=== PATIENT | male | born 1945 | race Caucasian/White ===

== ENCOUNTER → 2018-08-11 10:10 | Outpatient (CLI) | payer MEDICARE, SELFPAY ==
--- NOTE | 2018-08-11 10:50 | DI.CT.S_ITS ---
PROCEDURE: CT ABDOMEN PELVIS W CON INDICATIONS: ABD AORTIC ANEURYSM, WITHOUT RUPTURE TECHNIQUE: After the administration of oral and intravenous contrast, 5 mm thick sections acquired from the diaphragms to the symphysis. 5 mm thick coronal and sagittal reformats were performed. For radiation dose reduction, the following was used: automated exposure control, adjustment of mA and/or kV according to patient size. COMPARISON: [facility], CT, KIDNEY/ URETER/BLADDER, 05/11/2014, 13:42. FINDINGS: Image quality: Excellent. ABDOMEN: Lung bases: Lung bases are clear. Heart size is normal. Solid organs: Liver is normal in size and enhancement. Gallbladder appears normal. Biliary system is non-dilated. Pancreas enhances normally. Spleen is normal in size and enhancement. No adrenal nodules. Kidneys are normal in size and enhancement, without hydronephrosis. Note is made of clustered calcifications within the lower third collecting system of the right kidney and also 5 mm calcification at the collecting system of the junction of the upper and middle thirds of the right kidney. Peritoneum and bowel: Stomach, small bowel, and colon loops are normal in caliber and wall thickness. No free fluid or air. Nodes and vessels: No retroperitoneal or mesenteric adenopathy. Aorta and inferior vena cava are normal in caliber. Miscellaneous: No ventral hernias. PELVIS: Genitourinary: Bladder wall thickness is normal. Miscellaneous: No inguinal hernias or adenopathy. What appears to be a normal appendix is found. Bones: No suspicious bony lesions. No vertebral body compression fractures. IMPRESSION: Nonobstructive calculi are present within the collecting system of the right kidney superiorly and inferiorly but none appear obstructive. The largest is 5 mm in diameter and present at the junction of the upper and middle thirds of the right kidney. No aneurysm found, no evidence of aortic dissection identified. Dictated by: Mati Segundo M.D. on 08/11/2018 at 13:56 Approved by: Mati Segundo M.D. on 08/11/2018 at 13:59
== END ==
PROVIDERS: Visit Provider Internal Medicine
DX: N20.0 Calculus of kidney (principal)
CPT/HCPCS: 74177; Q9967

== ENCOUNTER → 2021-02-06 08:52 | Outpatient (CLI) | payer MEDICARE, SELFPAY ==
[2021-02-06 10:16] LABS: Aspartate Aminotransferase 25 IU/L (17-59); BUN Creatinine Ratio 15.2 (6-22); Blood Urea Nitrogen 12 mg/dL (9-20); Calcium 9.5 mg/dL (8.4-10.2); Carbon Dioxide 27 mmol/L (22-32); Chloride 105 mmol/L (98-107); Cholesterol 158 mg/dL (140-199); Estimated Glomerular Filt Rate > 60.0 mL/min (>60); Glucose 114 mg/dL (80-110); HDL Cholesterol 49 mg/dL (40-60); HEMOLYSIS < 15 (0-50); LDL Cholesterol Calculated 60 mg/dL (<100); Potassium 4.4 mmol/L (3.4-5.1); Sodium 138 mmol/L (137-145); Triglycerides 244 mg/dL (35-150)
[2021-02-06 10:48] LABS: Prostate Specific Antigen 1.17 ng/mL (0.10-4.00)
[2021-02-06 11:07] LABS: Vitamin B12 526 pg/mL (239-931)
== END ==
PROVIDERS: Referring Provider Internal Medicine; Visit Provider Internal Medicine
DX: I10 Essential (primary) hypertension (principal); E78.2 Mixed hyperlipidemia; R73.01 Impaired fasting glucose; N40.0 Benign prostatic hyperplasia without lower urinary tract symptoms; E53.8 Deficiency of other specified B group vitamins
CPT/HCPCS: 36415; 80048; 80061; 82607; 83036; 84153; 84450

== ENCOUNTER 2021-09-05 10:30 | Outpatient (RCR) | payer MEDICARE, SELFPAY ==
--- NOTE | 2021-08-24 09:39 | PT-OP ANOTE ---
Addendum entered and electronically signed by Dania Pritchett PT 08/24/21 15:29: Send to [facility] Original Note: PT calls Dr. Szymanski's office and leaves message with MA about pt's spontaneous nystagmus at rest that is the same with positional changes and is vertical and downbeat in nature and is more concerning clinically for central vascular of the cervical spine or head.
--- NOTE | 2021-08-24 15:28 | PT.OIE ---
Addendum entered and electronically signed by Dania Pritchett PT 08/24/21 15:28: Send to Stephon Original Note: Current Diagnoses Benign paroxysmal vertigo, unspecified ear (08/24/21) Visit Care Team Role Provider Type Gabriele Szymanski MD Attending Provider Physician Primary Care Provider Referring Provider Specialty: Internal Medicine Address: [address] [place] [address], [facility] Email: [email or web address] Physical Therapy Initial Evaluation PT-OP-A Visit Information Start: 08/23/21 16:08 Freq: Status: Active Protocol: Document 08/24/21 07:30 MB (Rec: 08/24/21 07:51 MB [id number]) Out-Patient Physical Therapy Visit Information Visit Information Visit Type Initial Evaluation Visit Note Medicare AARP 10/10 before KX Visit Start Time 07:30 Visit Stop Time 08:15 Total Visit Minutes 45 Visit Number 1 Evaluation Information Evaluation Date 08/24/21 Precautions Precautions Spontaneous nystagmus with vertical downbeat at rest that does not change in any position, history of coronory disease and [place] PT-OP-B Current Condition Start: 08/23/21 16:08 Freq: Status: Active Protocol: Document 08/24/21 07:30 MB (Rec: 08/24/21 07:51 MB [id number]) Current Condition History of Current Condition Onset Date Many years, flare-up in the past 2-3 months Current Complaints Dizziness and imbalance that is worse with movement, getting up from comput History of Current Condition Pt states that he saw an ENT in the past and he had hearing tests, nasal cleanses and a year of allergy shots. He was given a dx of Meniere's. Pt reports a history of dizziness for many years and states that he could drive. Over the last three months, they have been in his motor home because they sold their house and he has not been able to drive. [place] He has found a lot of answers online about therapies . Pt has a history coronary artery atherosclerotic disease , [place], three stents, pt questions Meniere's diagnosis. He states he was given a medication for all over joint pain. The doctor's note states that he has PMR. He is doing gentle neck stretches and this helps him feel more steady. When he carries the camera on the [employer] trail and looks down at the leaves, he feels unsteady. Moving is a problem. He recently got a prescription for distance glasses and things are clarified in the distance. He occ sees double images sometimes when looking in the distance. Pt sits at a computer a lot in the motor home and his vertigo is worse after that. Pt reports some pressure in both ears, chronic hearing change, occ a little bit of ringing and it may be in his left ear, occ headache, sinus/ allergy issues. Pt takes an allergy pill once a day. Pt denies falls, numbness and tingling, concussion and whiplash, performance of sit- ups, anemia, weakness, trouble swallowing, recent overhead lifting, B12 deficiency, eye pressure changes, chiropractor treatment, TMJ problems. Treatment Goals Patient/Caregiver Goals To eliminate symptoms and learn things to help PT-OP-C Subjective Start: 08/23/21 16:08 Freq: Status: Active Protocol: Document 08/24/21 07:30 MB (Rec: 08/24/21 07:51 MB [id number]) OP-PT Subjective Patient Comments Patient Comments See history of current condition PT-OP-O Vestibular Start: 08/23/21 16:08 Freq: Status: Active Protocol: Document 08/24/21 07:30 MB (Rec: 08/24/21 15:28 MB [id number]) Vestibular Assessment Visual Testing Smooth Pursuits Horizontal Faint downbeat vertical nystagmus with all eye movements Smooth Pursuits Vertical Faint downbeat vertical nystagmus with all eye movements Saccades Horizontal Two beat corrective saccade with right gaze and back to center Thrust Head Positive Bilateral Cover/Uncover Test WNL Spontaneous Nystagmus Positive Comments Vestibular Comments Pt presents with faint vertical downbeat nystagmus that is spontaneous and con't with smooth pursuits either direction and is present and does not change with right roll test and B Jermaine-Hallpike. He states that his dizziness is not worse with BPPV testing . Orthostatic testing is negative with BP and HR in LUE : supine 149/83, 70; standing 146/92, 87; standing 1' 146/90 , 81. PT-OP-Q Treatments Start: 08/23/21 16:08 Freq: Status: Active Protocol: Document 12/03/21 07:30 MB (Rec: 08/24/21 15:28 MB [id number]) Self-Care/Home Management Treatment Education Other Education Ed pt on signs and symptoms of stroke and to go to ED if he has worsening symptoms. Ed pt that PT will send note to Dr. Szymanski today and for pt to call Dr. Szymanski's office to alert doctor of PT note. PT also called Dr. Szymanski's office and left a message PT-OP-T Assessment and Plan Start: 08/23/21 16:08 Freq: Status: Active Protocol: Document 08/24/21 07:30 MB (Rec: 08/24/21 15:28 MB [id number]) Physical Therapy Assessment Rehab Potential Rehabilitation Potential Fair Evaluation Complexity Number of Personal Factors/Comorbidities 1-2 Number of Body Systems Impaired 4 or More Clinical Presentation at Evaluation Unstable Impairments Impairments Activity Tolerance,Balance, Functional Activities, Functional Mobility,Gait, Posture,ROM,Soft Tissue Mobility,Vestibular,Visual Motor Other Impairments Personal factors include that pt and in their RV and this limits mobility. Body systems affected include musculoskeletal, vestibular, neurological and cardiac. His clinical presentation is unstable. Other Concerns Fall Risk Yes Goals 2 Polytechnic Teacher Goal (LTG) Pt will perform progressive HEP with I including balance, appropriate AD training, VOR and visual motor and postural exercises to improve balance and to decrease fall risk by . LTG Duration 8 weeks 1 Polytechnic Teacher Goal (LTG) Pt will present WNLs on a standardized balance test to decrease fall risk by 10/25/21. LTG Duration 8 weeks Assessment Summary Assessment Pt is a 76 y/o male presenting with 2-3 month history of worsening dizziness that he describes as many sensations including spinning and light- headedness. He has trouble with his vision, after sitting at his computer and getting up to walk and with walking and visual tracking. He presents with faint vertical downbeat nystagmus at rest, with eye ROM and positional changes that does not change and his dizziness symptoms are not worse with BPPV testing this date. Orthostatics are negative and his BP is high. He has a positive cardiac history. PT does not see any cervical or brain testing. His presentation is concerning for central vascular pathology such as cervical vasculature or brain. PT left message at Dr. Szymanski's office. PT recommends further medical work-up including neurology and if MD deems appropriate, CTA of the cervial spine to assess posterior circulation. PT does recommend ongoing PT so that PT can assist pt with balance and perform ongoing assessment. PT ed pt on signs and symptoms of stroke today and to follow-up with Dr. Szymanski's office. Will initate PT trial and if PT is concerned that his clinical presentation becomes more unstable, will d/c PT. At this point, his symptoms have been coming on for months and PT may be helpful in monitoring progression of symptoms and presentations or improvement of it while providing education and safety training. Physical Therapy Plan Frequency and Duration Frequency of Treatment 2x/Week Duration of Treatment 8 weeks Plan of Care Start Date 08/24/21 Plan of Care End Date 10/25/21 Therapeutic Interventions Therapeutic Interventions Balance Training,Canalithic Repositioning,Coordination Training,Gait Training,Home Exercise Program,Joint Mobilizations,Manual Therapy, Neuromuscular Re-education, Patient/Caregiver Education, Self-Care/Home Management,Soft Tissue Mobilization,Taping, Therapeutic Activities, Therapeutic Exercises, Vestibular Rehabilitation Modalities Cold Pack/Ice Massage,Hot Packs Next Visit Focus/Plan Next Note Type Treatment Note Next Visit Plan Ongoing vestibular assessment
--- NOTE | 2021-08-24 15:28 | PT.OPPOC ---
Physical, Occupational & Speech Therapy At [facility] Current Diagnoses Benign paroxysmal vertigo, unspecified ear (08/24/21) Visit Care Team Role Provider Type Gabriele Szymanski MD Attending Provider Physician Primary Care Provider Referring Provider Specialty: Internal Medicine Address: [address] [place] [address], [id number] Email: [email or web address] Plan Of Care PT-OP-T Assessment and Plan Start: 08/23/21 16:08 Freq: Status: Active Protocol: Document 08/24/21 07:30 MB (Rec: 08/24/21 15:28 MB [id number]) Physical Therapy Assessment Rehab Potential Rehabilitation Potential Fair Evaluation Complexity Number of Personal Factors/Comorbidities 1-2 Number of Body Systems Impaired 4 or More Clinical Presentation at Evaluation Unstable Impairments Impairments Activity Tolerance,Balance, Functional Activities, Functional Mobility,Gait, Posture,ROM,Soft Tissue Mobility,Vestibular,Visual Motor Other Impairments Personal factors include that pt and in their RV and this limits mobility. Body systems affected include musculoskeletal, vestibular, neurological and cardiac. His clinical presentation is unstable. Other Concerns Fall Risk Yes Goals 2 Substitute Crossing Guard Goal (LTG) Pt will perform progressive HEP with I including balance, appropriate AD training, VOR and visual motor and postural exercises to improve balance and to decrease fall risk by . LTG Duration 8 weeks 1 Substitute Crossing Guard Goal (LTG) Pt will present WNLs on a standardized balance test to decrease fall risk by 10/25/21. LTG Duration 8 weeks Assessment Summary Assessment Pt is a 76 y/o male presenting with 2-3 month history of worsening dizziness that he describes as many sensations including spinning and light- headedness. He has trouble with his vision, after sitting at his computer and getting up to walk and with walking and visual tracking. He presents with faint vertical downbeat nystagmus at rest, with eye ROM and positional changes that does not change and his dizziness symptoms are not worse with BPPV testing this date. Orthostatics are negative and his BP is high. He has a positive cardiac history. PT does not see any cervical or brain testing. His presentation is concerning for central vascular pathology such as cervical vasculature or brain. PT left message at Dr. Szymanski's office. PT recommends further medical work-up including neurology and if MD deems appropriate, CTA of the cervial spine to assess posterior circulation. PT does recommend ongoing PT so that PT can assist pt with balance and perform ongoing assessment. PT ed pt on signs and symptoms of stroke today and to follow-up with Dr. Szymanski's office. Will initate PT trial and if PT is concerned that his clinical presentation becomes more unstable, will d/c PT. At this point, his symptoms have been coming on for months and PT may be helpful in monitoring progression of symptoms and presentations or improvement of it while providing education and safety training. Physical Therapy Plan Frequency and Duration Frequency of Treatment 2x/Week Duration of Treatment 8 weeks Plan of Care Start Date 08/24/21 Plan of Care End Date 10/25/21 Therapeutic Interventions Therapeutic Interventions Balance Training,Canalithic Repositioning,Coordination Training,Gait Training,Home Exercise Program,Joint Mobilizations,Manual Therapy, Neuromuscular Re-education, Patient/Caregiver Education, Self-Care/Home Management,Soft Tissue Mobilization,Taping, Therapeutic Activities, Therapeutic Exercises, Vestibular Rehabilitation Modalities Cold Pack/Ice Massage,Hot Packs Next Visit Focus/Plan Next Note Type Treatment Note Next Visit Plan Ongoing vestibular assessment Plan of Care Dates Plan of Care Start Date 08/24/21 Plan of Care End Date 10/25/21 Electronically Signed by: Dania Pritchett, PT 08/24/21 [id number] Please Sign and Return: I have reviewed this Plan of Care and certify that the skilled therapy services above are required to meet the patient?s needs. Physician Signature Date Printed Name and Credentials Clinical Instructor Signature Printed Name and Credentials
--- NOTE | 2021-08-24 17:23 | PT-OP ANOTE ---
Dr. Szymanski returns PT's call. PT communicates findings. Dr. Szymanski states that he agrees with PT's plan to con't PT and for ongoing PT assessment. He states that pt can follow-up with him as needed. He does not wish to order any diagnostics or have a neurology consult at this time. PT did assess coordination today and pt's left finger to nose is mildly dysmetric and B rapid supination and pronation is normal. Will con't PT per PT plan.
--- NOTE | 2021-08-27 09:00 | PT.OTN ---
Current Diagnoses Benign paroxysmal vertigo, unspecified ear (08/27/21) Physical Therapy Treatment Note PT-OP-A Visit Information Start: 08/23/21 16:08 Freq: Status: Active Protocol: Document 08/27/21 08:17 MB (Rec: 08/27/21 09:00 MB [id number]) Out-Patient Physical Therapy Visit Information Visit Information Visit Type Treatment Note Visit Note Medicare AARP / before KX Visit Start Time 08:17 Visit Stop Time 09:00 Total Visit Minutes 43 Visit Number 2 Evaluation Information Evaluation Date 08/24/21 Precautions Precautions Spontaneous nystagmus with vertical downbeat at rest that does not change in any position, history of coronory disease and [place] PT-OP-B Current Condition Start: 08/23/21 16:08 Freq: Status: Active Protocol: Document 08/24/21 07:30 MB (Rec: 08/24/21 07:51 MB [id number]) Current Condition History of Current Condition Onset Date Many years, flare-up in the past 2-3 months Current Complaints Dizziness and imbalance that is worse with movement, getting up from comput History of Current Condition Pt states that he saw an ENT in the past and he had hearing tests, nasal cleanses and a year of allergy shots. He was given a dx of Meniere's. Pt reports a history of dizziness for many years and states that he could drive. Over the last three months, they have been in his motor home because they sold their house and he has not been able to drive. [place] He has found a lot of answers online about therapies . Pt has a history coronary artery atherosclerotic disease , [place], three stents, pt questions Meniere's diagnosis. He states he was given a medication for all over joint pain. The doctor's note states that he has PMR. He is doing gentle neck stretches and this helps him feel more steady. When he carries the camera on the [employer] and looks down at the leaves, he feels unsteady. Moving is a problem. He recently got a prescription for distance glasses and things are clarified in the distance. He occ sees double images sometimes when looking in the distance. Pt sits at a computer a lot in the motor home and his vertigo is worse after that. Pt reports some pressure in both ears, chronic hearing change, occ a little bit of ringing and it may be in his left ear, occ headache, sinus/ allergy issues. Pt takes an allergy pill once a day. Pt denies falls, numbness and tingling, concussion and whiplash, performance of sit- ups, anemia, weakness, trouble swallowing, recent overhead lifting, B12 deficiency, eye pressure changes, chiropractor treatment, TMJ problems. Treatment Goals Patient/Caregiver Goals To eliminate symptoms and learn things to help PT-OP-C Subjective Start: 08/23/21 16:08 Freq: Status: Active Protocol: Document 08/27/21 08:17 MB (Rec: 08/27/21 09:00 MB [id number]) OP-PT Subjective Patient Comments Patient Comments Pt states that once again, the vertigo and light-headedness is most problematic when he is moving. If he pushes his head into the car seat, it gets better. The symptoms got worse when he returned from his RV trip. He is not driving d/t his symptoms. It is worse when he looks at the computer screen for a while. 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 PT-OP-O Vestibular Start: 08/23/21 16:08 Freq: Status: Active Protocol: Document 08/24/21 07:30 MB (Rec: 08/24/21 15:28 MB [id number]) Vestibular Assessment Visual Testing Smooth Pursuits Horizontal Faint downbeat vertical nystagmus with all eye movements Smooth Pursuits Vertical Faint downbeat vertical nystagmus with all eye movements Saccades Horizontal Two beat corrective saccade with right gaze and back to center Thrust Head Positive Bilateral Cover/Uncover Test WNL Spontaneous Nystagmus Positive Comments Vestibular Comments Pt presents with faint vertical downbeat nystagmus that is spontaneous and con't with smooth pursuits either direction and is present and does not change with right roll test and B Jermaine-Hallpike. He states that his dizziness is not worse with BPPV testing . Orthostatic testing is negative with BP and HR in LUE : supine 149/83, 70; standing 146/92, 87; standing 1' 146/90 , 81. PT-OP-Q Treatments Start: 08/23/21 16:08 Freq: Status: Active Protocol: Document 08/27/21 08:17 MB (Rec: 08/27/21 09:00 MB [id number]) Neuro Re-Education Treatment Balance Activities FGA Comments FGA score is 14/30, and pt reports most concern when going up and down the steps and stepping over step d/t concern for falling. His ABHI is wide and he has difficulty with all tasks without collins LOB. Lowest scores on walking with narrow base of support, walking with eyes closed, walking backwards, steps and stepping over obstacle Coordination Activities UE coordindation testing Comments B rapid pronation and supination and finger to nose grossly normal Vestibular Rehabilitation DVA with Eye Chart in hallway Comments Pt can read to line 6 without head moving. He has at least one error at line 5 with horizontal head turns and he resists vertial head turns and cannot tolerate testing. Overall, there is a visual motor and VOR component to his symptoms PT-OP-T Assessment and Plan Start: 08/23/21 16:08 Freq: Status: Active Protocol: Document 08/27/21 08:17 MB (Rec: 08/27/21 09:00 [id number]) Physical Therapy Assessment Rehab Potential Rehabilitation Potential Fair Evaluation Complexity Number of Personal Factors/Comorbidities 1-2 Number of Body Systems Impaired 4 or More Clinical Presentation at Evaluation Unstable Impairments Impairments Activity Tolerance,Balance, Functional Activities, Functional Mobility,Gait, Posture,ROM,Soft Tissue Mobility,Vestibular,Visual Motor Other Impairments Personal factors include that pt and in their RV and this limits mobility. Body systems affected include musculoskeletal, vestibular, neurological and cardiac. His clinical presentation is unstable. Other Concerns Fall Risk Yes Goals 2 Senior Living Goal (LTG) Pt will perform progressive HEP with I including balance, appropriate AD training, VOR and visual motor and postural exercises to improve balance and to decrease fall risk by . LTG Duration 8 weeks 1 Net Fisher Goal (LTG) Pt will present WNLs on a standardized balance test to decrease fall risk by 10/25/21. LTG Duration 8 weeks Assessment Summary Assessment Ongoing mild downbeat nystagmus at rest. PT notes it when checking B pupils today and neither is responsive to light. Coordination testing: rapid B supination and pronation and finger to nose normal. Sitting cervical AROM: extension 35 deg, flexion 45 deg, right rotation 45 deg and left rotation 30 deg. No increased dizziness with neck ROM. FGA score is 14/30 with pt most fearful of stepping over obstacle and stairs and he has trouble with head turns , eyes closed, backwards walking and tandem walking. DVA eye chart testing reveals visual motor and VOR component to his presentation. Cranial nerve screen: CN1 negative, CN2 positive changes in vision , CN3 neither pupil is very reactive to pen light in dark room, CN3, 4, 6 with smooth pursuits and he can perform smooth pursuits with occ noticeable mild down beat nystagmus at midline and end- range, CN5 negative, CN7 negative, CN8 hearing slightly better in the right, CN9 and 10 negative and pt does clear his throat a lot, CN11 and 12 negative (shoulder elevation and flexion B 5/5). Once again , pt's nystagmus pattern is not vestibular peripheral. Will send this note to Dr. Szymanski and will con't PT to see if central VOR and balance training can assist pt. Physical Therapy Plan Frequency and Duration Frequency of Treatment 2x/Week Duration of Treatment 8 weeks Plan of Care Start Date 08/24/21 Plan of Care End Date 10/25/21 Therapeutic Interventions Therapeutic Interventions Balance Training,Canalithic Repositioning,Coordination Training,Gait Training,Home Exercise Program,Joint Mobilizations,Manual Therapy, Neuromuscular Re-education, Patient/Caregiver Education, Self-Care/Home Management,Soft Tissue Mobilization,Taping, Therapeutic Activities, Therapeutic Exercises, Vestibular Rehabilitation Modalities Cold Pack/Ice Massage,Hot Packs Next Visit Focus/Plan Next Note Type Treatment Note Next Visit Plan Consider Ella Linn exercises, balance exercises.
--- NOTE | 2021-09-05 10:59 | PT.OTN ---
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 He was given a dx of Meniere's. Pt reports a history of dizziness for many years and states that he could drive. Over the last three months, they have been in his motor home because they sold their house and he has not been able to drive. [place] He has found a lot of answers online about therapies . Pt has a history coronary artery atherosclerotic disease , CO, three stents, pt questions Meniere's diagnosis. He states he was given a medication for all over joint pain. The doctor's note states that he has PMR. He is doing gentle neck stretches and this helps him feel more steady. When he carries the camera on the Clinical Data and looks down at the leaves, he feels unsteady. Moving is a problem. He recently got a prescription for distance glasses and things are clarified in the distance. He occ sees double images sometimes when looking in the distance. Pt sits at a computer a lot in the motor home and his vertigo is worse after that. Pt reports some pressure in both ears, chronic hearing change, occ a little bit of ringing and it may be in his left ear, occ headache, sinus/ allergy issues. Pt takes an allergy pill once a day. Pt denies falls, numbness and tingling, concussion and whiplash, performance of sit- ups, anemia, weakness, trouble swallowing, recent overhead lifting, B12 deficiency, eye pressure changes, chiropractor treatment, TMJ problems. Treatment Goals Patient/Caregiver Goals To eliminate symptoms and learn things to help PT-OP-C Subjective Start: 08/23/21 16:08 Freq: Status: Active Protocol: Document 09/05/21 10:33 MB (Rec: 09/05/21 10:58 MB [id number]) OP-PT Subjective Patient Comments Patient Comments Pt started some nasal spray the other night to help with some ear pressure. He might have felt a little better walking to the restroom at the [facility]. He feels like it is like he is straining hard to keep his eyes open like he is really tired. Riding in the car is troublesome. PT-OP-O Vestibular Start: 08/23/21 16:08 Freq: Status: Active Protocol: Document 08/24/21 07:30 MB (Rec: 08/24/21 15:28 MB [id number]) Vestibular Assessment Visual Testing Smooth Pursuits Horizontal Faint downbeat vertical nystagmus with all eye movements Smooth Pursuits Vertical Faint downbeat vertical nystagmus with all eye movements Saccades Horizontal Two beat corrective saccade with right gaze and back to center Thrust Head Positive Bilateral Cover/Uncover Test WNL Spontaneous Nystagmus Positive Comments Vestibular Comments Pt presents with faint vertical downbeat nystagmus that is spontaneous and con't with smooth pursuits either direction and is present and does not change with right roll test and B Jermaine-Hallpike. He states that his dizziness is not worse with BPPV testing . Orthostatic testing is negative with BP and HR in LUE : supine 149/83, 70; standing 146/92, 87; standing 1' 146/90 , 81. PT-OP-Q Treatments Start: 08/23/21 16:08 Freq: Status: Active Protocol: Document 09/05/21 10:33 MB (Rec: 09/05/21 10:58 MB [id number]) Therapeutic Exercises Sitting Exercises Noelle Comments Initiated in sitting and these were insignificant as far as findings Therapeutic Activity Therapeutic Activity Motion Sensitivity Score Comments Performed today and pt has mild downbeat nystagmus all positions and no increased symptoms except with turning [address] and he felt more dizzy. Nystagmus is the same. He keeps his head still with 180 deg turns and so did 360 deg as well PT-OP-T Assessment and Plan Start: 08/23/21 16:08 Freq: Status: Active Protocol: Document 09/05/21 10:33 MB (Rec: 09/05/21 10:58 MB [id number]) Physical Therapy Assessment Rehab Potential Rehabilitation Potential Fair Evaluation Complexity Number of Personal Factors/Comorbidities 1-2 Number of Body Systems Impaired 4 or More Clinical Presentation at Evaluation Unstable Impairments Impairments Activity Tolerance,Balance, Functional Activities, Functional Mobility,Gait, Posture,ROM,Soft Tissue Mobility,Vestibular,Visual Motor Other Impairments Personal factors include that pt and in their RV and this limits mobility. Body systems affected include musculoskeletal, vestibular, neurological and cardiac. His clinical presentation is unstable. Other Concerns Fall Risk Yes Goals 2 Sheet Manager Goal (LTG) Pt will perform progressive HEP with I including balance, appropriate AD training, VOR and visual motor and postural exercises to improve balance and to decrease fall risk by . LTG Duration 8 weeks 1 [facility] Goal (LTG) Pt will present WNLs on a standardized balance test to decrease fall risk by 10/25/21. LTG Duration 8 weeks Assessment Summary Assessment Performed Motion Senstivity Quotient today and pt's symptoms only increase with full 360 deg turn and he feels dizzy. He con't with constant downbeat nystagmus. Pt is not comfortable driving d/t his symptoms. Noelle exercise trial today as well and they are not particularly helpful. Once again, PT is concerned about central problem and no diagnostics. He also cannot drive. Recommend neurology consult and diagnostics. Will d/c PT. Will send this note to Dr. Szymanski and asked pt to call Dr. Szymanski 's office today. PT referral in the future once medical work-up completed. Of note, PT does suspect a separate vestibular issue/sinus issues as well but this is secondary and central nystagmus is a red flag. Physical Therapy Plan Frequency and Duration Frequency of Treatment 2x/Week Duration of Treatment 8 weeks Plan of Care Start Date 08/24/21 Plan of Care End Date 10/25/21 Therapeutic Interventions Therapeutic Interventions Balance Training,Canalithic Repositioning,Coordination Training,Gait Training,Home Exercise Program,Joint Mobilizations,Manual Therapy, Neuromuscular Re-education, Patient/Caregiver Education, Self-Care/Home Management,Soft Tissue Mobilization,Taping, Therapeutic Activities, Therapeutic Exercises, Vestibular Rehabilitation Modalities Cold Pack/Ice Massage,Hot Packs
== END 2021-10-23 08:53 ==
LOC: PHYS 10:30
PROVIDERS: PCP Internal Medicine; Referring Provider Internal Medicine; Visit Provider Internal Medicine
DX: H81.10 Benign paroxysmal vertigo, unspecified ear (principal)
CPT/HCPCS: 97112; 97163; 97535

== ENCOUNTER 2022-02-19 03:49 | Emergency (ER) | payer MEDICARE, SELFPAY ==
[2022-02-19] VITALS (7 sets, daily range): BP systolic 117–154; BP diastolic 58–83; PULSE 79–103; RESP 18–24; TEMP 36.6; O2SAT 92–98; BMI 30.1
--- NOTE | 2022-02-19 04:14 | PC.NURSE ---
Pt palpated his right groin and states he doesn't feel any swelling or hard lump. Pt states he has had hernias in the past and states this pain feels similar. Pt states that he saw some pink in his urine and was concerned it may be blood. Pt also reports urinary frequency. UA sent for analysis.
[2022-02-19 04:15] LABS: Bilirubin Urine UA NEGATIVE (NEGATIVE); Color Urine UA YELLOW; Glucose Urine UA NEGATIVE (Negative); Ketones Urine UA NEGATIVE (NEGATIVE); Leukocyte Esterase Urine UA 3+ (NEGATIVE); Nitrite Urine UA NEGATIVE (Negative); Occult Blood Urine UA 3+ (Negative); Protein Urine UA TRACE (Negative); Urobilinogen Urine UA 0.2 E.U./dL (0.2)
[2022-02-19 04:17] LABS: Appearance Urine UA SL CLOUDY
[2022-02-19 04:21] LABS: Bacteria Urine Many (>30); Culture Indicated Urine Specimen Cultured; RBC Urine 30-100/HPF (0-5/HPF); Squamous Epithelial Cell Urine 0-1 /HPF (0-5/HPF); WBC Urine 30-100/HPF (0-5/HPF)
[2022-02-19 04:52] LABS: Add Manual Diff / Slide Review NO; Basophils Absolute Auto 0 /uL (0-100); Basophils Percent Auto 0.4 % (0-2); Eosinophils Absolute Auto 100 /uL (0-450); Eosinophils Percent Auto 0.9 % (2-4); Hematocrit 43.8 % (41-53); Hemoglobin 14.8 g/dL (13.5-17.5); Lymphocytes Absolute Auto 1100 /uL (1100-4500); Lymphocytes Percent Auto 10.7 % (25-40); Mean Corpuscular HGB Conc 33.8 % (30-36); Mean Corpuscular Hemoglobin 30.3 PG (26-34); Mean Corpuscular Volume 89.7 fL (80-100); Monocytes Absolute Auto 300 /uL (0-900); Monocytes Percent Auto 3.3 % (3-14); Neutrophils Absolute Auto 9000 /uL (1500-7000); Neutrophils Percent Auto 84.7 % (50-75); Platelet Count 201 X10^3/uL (150-400); Red Blood Cell Count 4.88 X10^6/uL (4.5-5.9); Red Cell Distribution Width 13.6 % (11.6-14.8); White Blood Cell Count 10.6 X10^3/uL (4.5-11.0)
--- NOTE | 2022-02-19 04:58 | ED_ITS ---
HPI - General Adult General Chief complaint: Urogenital-Male Stated complaint: right groin pain, blood in urine Time Seen by Provider: 02/19/22 04:58 Source: patient Mode of arrival: Ambulatory History of Present Illness HPI narrative: 76-year-old gentleman with a history of hyperlipidemia, hypertension presents with right groin pain and difficulty walking. He has had a hip replacement on that side. He reports no fevers but he has had chills he also notes history of kidney stones. Over the last 48 hours he has had increased urinary frequency, urgency and incontinence he has noted mild hematuria. He has had dry heaves but no overt emesis. No chest pain, palpitations, headaches, rashes, constipation, lower extremity edema, acute neurologic changes. Related Data Home Medications Medication Instructions Recorded Confirmed PRASUGREL HYDROCHLORIDE (EFFIENT) 10 mg PO #0 01/09/13 atorvastatin 10 mg tablet (Lipitor) 10 mg PO HS #0 01/09/13 carvedilol 3.125 mg tablet (Coreg) 3.125 mg PO BID #0 01/09/13 Previous Rx's Medication Instructions Recorded sulfamethoxazole 800 1 tab PO BID #14 tab 02/19/22 mg-trimethoprim 160 mg tablet (Bactrim DS) Allergies Allergy/AdvReac Type Severity Reaction Status Date / Time No Known Drug Allergies Allergy Verified 02/19/22 05:10 Review of Systems Review of Systems Narrative: Remainder of complete review of systems is otherwise unremarkable except for that included in the HPI. Patient History Social History Smoking Status: Never smoker Smoking Status: Never smoker alcohol intake frequency: 3 or more drinks per day Alcohol type: wine Substance Use Type: does not use Exam Initial Vital Signs Initial Vital Signs: Vital Signs Temperature 97.9 F 02/19/22 04:02 Pulse Rate 103 H 02/19/22 04:02 Respiratory Rate 24 02/19/22 04:02 Blood Pressure 154/83 H 02/19/22 04:02 Pulse Oximetry 97 02/19/22 04:02 General: Healthy appearing, in no acute distress. Able to give a complete and coherent history. Well-nourished well-developed HEENT: Moist mucous membranes, normal sclera with reactive pupils, Neck: No JVD, supple Respiratory: Lungs are clear to auscultation, no wheezing no rales no rhonchi. Full and symmetrical air movement Cardiac: Regular rate and rhythm no murmurs no bruits Abdomen: Soft, mild right flank and right lower quadrant tenderness with tenderness along the inguinal canal but no palpable hernia appreciated, good bowel tones, Skin: Warm and dry, no rashes Neurologic: Grossly neurologically intact with no obvious asymmetries or abnormalities Extremities: No trauma, well perfused Psych: Cooperative, appropriate insight and affect Course Orders Ordered: ED Orders 02/19/22 04:00 CMP [Comprehensive Metabolic Panel] Stat Complete Blood Count AUTO DIFF Stat 02/19/22 04:10 Urinalysis and Microscopic Stat Urine Culture Stat 02/19/22 05:06 CT kidney ureter bladder (KUB) Stat Discontinued Medications Sodium Chloride (Normal Saline 0.9%) 1,000 mls @ 1,000 mls/hr IV BOLUS ONE Stop: 02/19/22 06:04 Last Infusion: 02/19/22 06:11 Dose: 0 mls/hr Documented by: [email or web address] Admin: 02/19/22 05:10 Dose: 1,000 mls/hr Documented by: [email or web address] Ketorolac Tromethamine (Ketorolac 30 Mg/Ml Vial) 15 mg IV NOW ONE Stop: 02/19/22 05:06 Last Admin: 02/19/22 05:10 Dose: 15 mg Documented by: [email or web address] Ondansetron HCl (Ondansetron 4 Mg/2 Ml Inj) 4 mg IV NOW ONE Stop: 02/19/22 05:06 Last Admin: 02/19/22 05:10 Dose: 4 mg Documented by: [email or web address] Vital Signs Vital signs: Vital Signs - 8 hr 02/19/22 04:02 02/19/22 04:44 02/19/22 05:01 Temperature 97.9 F Pulse Rate 103 H 90 95 H Respiratory Rate 24 24 Blood Pressure 154/83 H 142/68 H Pulse Oximetry 97 98 96 02/19/22 05:37 02/19/22 05:38 02/19/22 06:00 Temperature Pulse Rate 85 92 H Respiratory Rate Blood Pressure 132/65 Pulse Oximetry 94 95 92 Medical Decision Making Lab Data Result diagrams: 02/19/22 04:00 02/19/22 04:00 Labs: Lab Results 02/19/22 02/19/22 02/19/22 Range/Units 04:00 04:00 04:10 WBC 10.6 (4.5-11.0) X10^3/uL RBC 4.88 (4.5-5.9) X10^6/uL Hgb 14.8 (13.5-17.5) g/dL Hct 43.8 (41-53) % MCV 89.7 (80-100) fL MCH 30.3 (26-34) PG MCHC 33.8 (30-36) % RDW 13.6 (11.6-14.8) % Plt Count 201 (150-400) X10^3/uL Neut % (Auto) 84.7 H (50-75) % Lymph % (Auto) 10.7 L (25-40) % [place] % (Auto) 3.3 (3-14) % Eos % (Auto) 0.9 L (2-4) % Baso % (Auto) 0.4 (0-2) % Neut # (Auto) 9000 H (2475-0952) /uL Lymph # (Auto) 1100 (1875-8440) /uL [place] # (Auto) 300 (0-900) /uL Eos # (Auto) 100 (0-450) /uL Baso # (Auto) 0 (0-100) /uL Sodium 137 (137-145) mmol/L Potassium 4.4 (3.4-5.1) mmol/L Chloride 102 (98-107) mmol/L Carbon Dioxide 23 (22-32) mmol/L BUN 17 (9-20) mg/dL Creatinine 0.71 (0.66-1.25) mg/dL Estimated GFR > 60 (>60) mL/min BUN/Creatinine Ratio 23.9 H (6-22) Glucose 146 H (80-110) mg/dL Calcium 9.2 (8.4-10.2) mg/dL Total Bilirubin 0.8 (0.2-1.3) mg/dL AST 30 (17-59) IU/L ALT 32 (<50) IU/L Alkaline Phosphatase 66 (38-126) U/L Total Protein 7.8 (6.3-8.2) g/dL Albumin 4.7 (3.5-5.0) g/dL Globulin 3.1 (1.7-4.1) g/dL Albumin/Globulin Ratio 1.5 (1.0-2.8) Urine Color Yellow Urine Appearance Sl cloudy Urine pH 5.0 (4.5-8.0) Ur Specific Mccr[place] 1.020 (1.000-1.035) Urine Protein Trace H (Negative) Urine Glucose (UA) Negative (Negative) g/dL Urine Ketones Negative (NEGATIVE) Urine Occult Blood 3+ H (Negative) Urine Nitrate Negative (Negative) Urine Bilirubin Negative (NEGATIVE) Urine Urobilinogen 0.2 (0.2) E.U./dL Ur Leukocyte Esterase 3+ H (NEGATIVE) Urine RBC 30-100/hpf H (0-5/HPF) Urine WBC 30-100/hpf H (0-5/HPF) Ur Squamous Epith Cells 0-1 /hpf (0-5/HPF) Urine Bacteria Many (>30) H (None) Ur Culture Indicated? Specimen cultured Imaging Data CT scan - abdomen/pelvis: Radiologist's Impression: Bilateral nonobstructing renal calculi. Extensive colonic diverticulosis without evidence of acute diverticulitis Roopa Hernandes MD [facility] Narrative Medical decision making narrative: 76-year-old gentleman complaining of right groin pain to the point he is having difficulty walking. Workup in the emergency room is notable what appears to be a bladder infection however CT scan does not suggest pyelonephritis, he does not have a significant leukocytosis he certainly does not have an acute abdomen. There is no evidence of incarcerated hernia and no ureterolithiasis or obstructing urinary stones are appreciated. Will be treated with 7 days of Sept ra. At this point I do not suspect acute hip abnormality or septic arthritis. His prosthetic hip on the right side looks appropriate on x-ray. Findings are reviewed with patient and his . I encouraged them to return should he develop any symptoms. He will be given his 1st dose of Septra in the emergency department and he is safe for home discharge Discharge Plan Departure Patient Disposition: Home Clinical Impression: Urinary tract infection, Right groin pain Instructions: DI for Urinary Retention in Men Activity Restrictions/Additional Instructions: Thank you for coming in today You do have what appears to be a bladder infection and I am going to treat this with 7 days of Septra. You were given your 1st dose in the emergency department. The CT scan does not suggest an acute kidney stone, anything obstructing your kidney, acute hernia, diverticulitis or appendicitis. There are no findings on the CT scan that would suggest further workup or hospitalization at this time. Similarly, I do not see any abnormalities in or around your hip or hip joint. I see no skin rashes or changes to suggest that your much pain might be related to shingles. Using 400 mg of ibuprofen (2 vbli-aje-cjzuswe pills) and 1 Tylenol every 6 hours can be very helpful in controlling pain that your noticing in your groin. If you find that you are getting worse or develop any new symptoms, please feel free to return to the emergency department for further evaluation. Prescriptions: New sulfamethoxazole-trimethoprim [Bactrim DS] 800-160 mg tablet 1 tab PO BID Qty: 14 0RF No Action atorvastatin [Lipitor] 10 MG tablet 10 mg PO HS Qty: 0 0RF carvedilol [Coreg] 3.125 MG tablet 3.125 mg PO BID Qty: 0 0RF PRASUGREL HYDROCHLORIDE (EFFIENT) 10 mg PO Qty: 0 0RF Referrals: Gabriele Szymanski MD [Primary Care Provider] -
[2022-02-19 05:01] LABS: Alanine Aminotransferase 32 IU/L (<50); Albumin 4.7 g/dL (3.5-5.0); Albumin Globulin Ratio 1.5 (1.0-2.8); Alkaline Phosphatase 66 U/L (38-126); Aspartate Aminotransferase 30 IU/L (17-59); BUN Creatinine Ratio 23.9 (6-22); Bilirubin Total 0.8 mg/dL (0.2-1.3); Blood Urea Nitrogen 17 mg/dL (9-20); Calcium 9.2 mg/dL (8.4-10.2); Carbon Dioxide 23 mmol/L (22-32); Chloride 102 mmol/L (98-107); Estimated Glomerular Filt Rate > 60 mL/min (>60); Globulin 3.1 g/dL (1.7-4.1); Glucose 146 mg/dL (80-110); HEMOLYSIS < 15 (0-50); Potassium 4.4 mmol/L (3.4-5.1); Sodium 137 mmol/L (137-145); Total Protein 7.8 g/dL (6.3-8.2)
--- NOTE | 2022-02-19 05:04 | PC.NURSE ---
Pt now endorsing dull right flank pain, states he has a history of kidney stones.
--- NOTE | 2022-02-19 05:06 | DI.CT.S_ITS ---
PROCEDURE: CT KIDNEY URETER BLADDER (KUB) INDICATIONS: right flank pain TECHNIQUE: Axial sections were acquired from the lung bases to the pubic symphysis. Coronal and sagittal reformats were performed. For radiation dose reduction, the following was used: automated exposure control, adjustment of mA and/or kV according to patient size. COMPARISON: [facility], CT, KIDNEY/ URETER/BLADDER, 05/11/2014, 13:42. FINDINGS: Image quality: Excellent. Lung bases: Unremarkable. Heart: No significant findings. URINARY: Right Kidney: Multiple punctate nonobstructing nephroliths are again noted. Largest measures approximately 8 mm in size in the upper pole of the right kidney measuring 828 Hounsfield units in density. Multiple smaller renal stones are clustered near the lower pole. No perinephric stranding. No hydronephrosis. Right Ureter: Right ureter is normal in course and caliber. No ureteral stone. Left Kidney: Tiny punctate nonobstructing nephroliths are present. Largest measures approximately 2 mm in size. No perinephric stranding. No hydronephrosis. Left Ureter: Left ureter is normal in course and caliber. No ureteral stone. Bladder: Normal wall thickness. No stones. ABDOMEN: Liver: Unremarkable. Gallbladder: Unremarkable. Biliary ducts: Unremarkable. Pancreas: Unremarkable. Spleen: Unremarkable. Adrenal Glands: Unremarkable. Stomach and Bowel: Stomach, small bowel loops, and colon are unremarkable. Colonic diverticulosis without evidence for acute diverticulitis. Visualized appendix appears normal. Peritoneum: No abnormal intraperitoneal fluid. No free air. Ventral Wall: No hernia. Abdominal Nodes: No enlarged retroperitoneal or mesenteric lymph nodes. Vessels: Aorta and inferior vena cava are normal in size. Scattered atherosclerotic calcifications of the abdominal aorta and iliac vessels without aneurysmal dilatation. The inferior vena cava appears patent. PELVIS: Pelvic Organs: Unremarkable. Pelvic Nodes: Unremarkable. Miscellaneous: No inguinal hernias are seen. Bones: Status post right total hip arthroplasty. No acute osseous abnormalities. No acute compression fractures. IMPRESSION: 1. Bilateral nonobstructing renal calculi. No hydronephrosis or perinephric inflammation. 2. Extensive colonic diverticulosis without evidence for acute diverticulitis. 3. Normal appendix. No significant discrepancy with the night stocker radiology preliminary report. Dictated by: Brett Garduno M.D. on 02/19/2022 at 8:01 Approved by: Brett Garduno M.D. on 02/19/2022 at 8:41
[2022-02-19] MEDS: ONDANSETRON 4 MG/2 ML INJ IV (05:10)
[2022-02-19] MEDS: SODIUM CHLORIDE 0.9% 1,000 ML 1000 ML IV (05:10)
[2022-02-19] MEDS: KETOROLAC 30 MG/ML VIAL 15 MG IV (05:10)
[2022-02-19] MEDS: TRIMETH/SULFA 160/800 (DS) TABLET 1 TAB PO (07:28)
== END 2022-02-19 07:44 | disposition home or self-care (01) ==
PROVIDERS: Emergency Provider Emergency Medicine; PCP Internal Medicine
DX: N39.0 Urinary tract infection, site not specified (principal); R10.9 Unspecified abdominal pain; R31.9 Hematuria, unspecified
CPT/HCPCS: 74176; 80053; 81001; 85025; 87077; 87086; 87186; 96361; 96374; 96375; 99284; J1885; J2405

== ENCOUNTER → 2022-03-15 08:52 | Outpatient (CLI) | payer MEDICARE, SELFPAY ==
[2022-03-15 09:14] LABS: Hematocrit 43.2 % (41-53); Hemoglobin 14.5 g/dL (13.5-17.5); Mean Corpuscular HGB Conc 33.4 % (30-36); Mean Corpuscular Hemoglobin 30.3 PG (26-34); Mean Corpuscular Volume 90.7 fL (80-100); Platelet Count 237 X10^3/uL (150-400); Red Blood Cell Count 4.77 X10^6/uL (4.5-5.9); Red Cell Distribution Width 13.3 % (11.6-14.8); White Blood Cell Count 6.6 X10^3/uL (4.5-11.0)
[2022-03-15 09:36] LABS: Erythrocyte Sedimentation Rate 10 MM/HR (0-15)
[2022-03-15 09:38] LABS: Alanine Aminotransferase 32 IU/L (<50); Albumin 4.6 g/dL (3.5-5.0); Albumin Globulin Ratio 1.8 (1.0-2.8); Alkaline Phosphatase 63 U/L (38-126); Aspartate Aminotransferase 27 IU/L (17-59); BUN Creatinine Ratio 17.8 (6-22); Bilirubin Total 0.6 mg/dL (0.2-1.3); Blood Urea Nitrogen 13 mg/dL (9-20); C-Reactive Protein Quant < 0.5 mg/dL (<1.0); Calcium 9.2 mg/dL (8.4-10.2); Carbon Dioxide 29 mmol/L (22-32); Chloride 104 mmol/L (98-107); Cholesterol 163 mg/dL (140-199); Estimated Glomerular Filt Rate > 60 mL/min (>60); Globulin 2.6 g/dL (1.7-4.1); Glucose 126 mg/dL (80-110); HDL Cholesterol 45 mg/dL (40-60); HEMOLYSIS < 15 (0-50); LDL Cholesterol Calculated 79 mg/dL (<100); Potassium 4.7 mmol/L (3.4-5.1); Sodium 138 mmol/L (137-145); Total Protein 7.2 g/dL (6.3-8.2); Triglycerides 195 mg/dL (35-150)
[2022-03-15 09:41] LABS: Rheumatoid Factor < 8.6 IU/mL (<12.0)
[2022-03-15 10:16] LABS: TSH w/ Reflex to FT4 2.67 uIU/mL (0.47-4.68)
[2022-03-19 01:27] LABS: CCP Antibodies IgG/IgA <1 units (0-19)
[2022-03-19 11:46] LABS: Acetylcholine Blocking AB 21 % (0-25); Acetylcholine Receptor Bind AB 0.09 nmol/L (0.00-0.24)
[2022-03-19 13:17] LABS: ANA Screen, IFA Negative (.)
== END ==
PROVIDERS: PCP Internal Medicine; Referring Provider Internal Medicine; Visit Provider Internal Medicine
DX: E78.2 Mixed hyperlipidemia (principal); I10 Essential (primary) hypertension; I25.10 Atherosclerotic heart disease of native coronary artery without angina pectoris; I50.22 Chronic systolic (congestive) heart failure; M15.9 Polyosteoarthritis, unspecified; M12.9 Arthropathy, unspecified; H53.2 Diplopia
CPT/HCPCS: 36415; 80053; 80061; 83519; 84443; 85027; 85651; 86038; 86140; 86200; 86430

== ENCOUNTER → 2022-03-19 16:59 | Outpatient (CLI) | payer MEDICARE, SELFPAY ==
--- NOTE | 2022-03-19 17:01 | DI.MRI.S_ITS ---
PROCEDURE: MR ORBITS FACE NECK WO/W CON INDICATIONS: diplopia, r/o PARACHUTE MENDER neoplasm TECHNIQUE: Noncontrast sagittal T1 spin echo, axial FLAIR, axial gradient echo, axial diffusion and ADC acquired through the brain. Coronal STIR, thin-slice axial T1 spin echo through the orbits. After the administration of contrast, thin-slice axial and coronal T1 spin echo with fat saturation through the orbits, axial and coronal and sagittal T1 spin echo with fat saturation through the brain. COMPARISON: None. FINDINGS: Image quality: Excellent. Orbits: Globes are symmetrical. The optic nerves are normal in size, without abnormal signal or enhancement. No retrobulbar masses or fat abnormalities. The extra-ocular muscles are normal and symmetric in appearance. Lacrimal glands are normal. Optic chiasm is normal. Periorbital soft tissues appear normal. CSF spaces: Ventricles are normal in size and shape. Basal cisterns are patent. No extra-axial fluid collections. Brain: No intracranial bleeds or mass effects. No abnormal intracranial enhancement. Pack-white matter interface is intact. Diffusion weighted images demonstrate no acute ischemic insults. Pituitary gland appears normal, without sellar or suprasellar masses. Brainstem appears normal. Normal intravascular flow voids are present. Skull and face: Calvarial marrow is normal in signal. 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 Scattered minimal pansinus mucosal thickening is present. IMPRESSION: 1. No acute intracranial process. 2. No visualized cause of diplopia. Dictated by: Izabella Esquivel M.D. on 03/20/2022 at 14:28 Approved by: Izabella Esquivel M.D. on 03/20/2022 at 14:30
== END ==
PROVIDERS: PCP Internal Medicine; Referring Provider Internal Medicine; Visit Provider Internal Medicine
DX: H53.2 Diplopia (principal)
CPT/HCPCS: 70543; A9579

== ENCOUNTER → 2022-06-13 06:56 | Outpatient (CLI) | payer MEDICARE, SELFPAY ==
[2022-06-13 08:42] LABS: Appearance Urine UA SL CLOUDY; Bilirubin Urine UA NEGATIVE (NEGATIVE); Color Urine UA YELLOW; Glucose Urine UA NEGATIVE (Negative); Ketones Urine UA NEGATIVE (NEGATIVE); Leukocyte Esterase Urine UA NEGATIVE (NEGATIVE); Nitrite Urine UA NEGATIVE (Negative); Occult Blood Urine UA 3+ (Negative); Protein Urine UA TRACE (Negative); Urobilinogen Urine UA 0.2 E.U./dL (0.2)
[2022-06-13 08:48] LABS: Bacteria Urine None Seen; Culture Indicated Urine Cult Not Indicated; RBC Urine 30-100/HPF (0-5/HPF); Squamous Epithelial Cell Urine 1-5 /HPF (0-5/HPF); WBC Urine None Seen (0-5/HPF)
[2022-06-13 12:02] LABS: Add Manual Diff / Slide Review NO; Basophils Absolute Auto 0 /uL (0-100); Basophils Percent Auto 0.4 % (0-2); Eosinophils Absolute Auto 200 /uL (0-450); Hemoglobin 14.8 g/dL (13.5-17.5); Lymphocytes Absolute Auto 1900 /uL (1100-4500); Lymphocytes Percent Auto 21.6 % (25-40); Mean Corpuscular HGB Conc 33.6 % (30-36); Mean Corpuscular Hemoglobin 30.6 PG (26-34); Mean Corpuscular Volume 91.2 fL (80-100); Monocytes Absolute Auto 700 /uL (0-900); Monocytes Percent Auto 7.9 % (3-14); Neutrophils Absolute Auto 6100 /uL (1500-7000); Neutrophils Percent Auto 68.1 % (50-75); Platelet Count 235 X10^3/uL (150-400); Red Blood Cell Count 4.83 X10^6/uL (4.5-5.9); Red Cell Distribution Width 13.4 % (11.6-14.8)
[2022-06-13 12:32] LABS: BUN Creatinine Ratio 23.9 (6-22); Blood Urea Nitrogen 16 mg/dL (9-20); Calcium 9.3 mg/dL (8.4-10.2); Carbon Dioxide 27 mmol/L (22-32); Chloride 101 mmol/L (98-107); Estimated Glomerular Filt Rate > 60 mL/min (>60); Glucose 81 mg/dL (80-110); HEMOLYSIS < 15 (0-50); Potassium 4.4 mmol/L (3.4-5.1); Sodium 139 mmol/L (137-145)
== END ==
PROVIDERS: PCP Internal Medicine; Referring Provider Internal Medicine; Visit Provider Internal Medicine
DX: R31.9 Hematuria, unspecified (principal); R31.0 Gross hematuria
CPT/HCPCS: 36415; 80048; 81001; 85025

== ENCOUNTER → 2022-06-14 12:14 | Outpatient (CLI) | payer MEDICARE, SELFPAY ==
--- NOTE | 2022-06-14 12:14 | DI.CT.S_ITS ---
PROCEDURE: CT IVP A/P W/WO INDICATIONS: hematuria TECHNIQUE: Optional 5 mm thick noncontrast images acquired from the diaphragm to the symphysis pubis. After the administration of intravenous contrast, 5 mm thick images acquired from the diaphragm to the symphysis pubis after a 10-minute delay. 2 mm thick coronal and sagittal reformats were then performed of the kidneys and ureters. For radiation dose reduction, the following was used: automated exposure control, adjustment of mA and/or kV according to patient size. COMPARISON: [facility], CT, CT KIDNEY URETER BLADDER (KUB), 02/19/2022, 5:30. FINDINGS: Image quality: Excellent. Lung bases: Lung bases are clear. Heart size is normal. Urinary system: Normal renal sizes. Subcentimeter cortical cysts present in each kidney. Otherwise normal renal enhancement.The right kidney contains an 8 mm upper pole calcification with Hounsfield units of 564. There are three nonobstructing lower pole calcifications with Hounsfield units of 515 and 654. There is a collection of two calcifications at the ureteropelvic junction, together measuring 6.5 mm with Hounsfield units of 848. There is minor hydronephrosis and slight pelvic dilatation. No other stones in the right ureter. The left kidney contains a punctate lower pole calcification. No hydronephrosis. No hydroureter or calcification. The urinary bladder is decompressed without stones. Other solid organs: Normal size liver with of subcentimeter left lobe hepatic cyst. The gallbladder is partially decompressed without wall thickening or calcification. Nondilated biliary tree. Pancreas, adrenal glands, and spleen are normal. Peritoneum and bowel: Normal stomach, small bowel loops, appendix, and proximal colon. There are diverticula from the splenic flexure through the sigmoid, particularly pronounced in the sigmoid colon where there is circumferential wall thickening throughout much the sigmoid. No free fluid or free air. Nodes and vessels: No retroperitoneal or mesenteric adenopathy by size criteria. Aorta and inferior vena cava are normal in size. Abdominal wall: No ventral hernias. Pelvis: Prostate gland is moderately enlarged. No inguinal hernias or pelvic. Bones: Right hip arthroplasty components. Ankylosis of both sacroiliac joints and bridging osteophytes throughout much of the spine. IMPRESSION: 1. Mildly obstructing collection right ureteropelvic junction calcifications. 2. Nonobstructing upper and lower pole intrarenal calculi on the right and punctate nonobstructing left intrarenal calculus. 3. Moderate prostatomegaly. 4. Any of these may be cause transient hematuria. 5. Moderate to marked colonic diverticulosis. Dictated by: Josette Posey M.D. on 06/14/2022 at 22:39 Approved by: Josette Posey M.D. on 06/14/2022 at 22:51
== END ==
PROVIDERS: PCP Internal Medicine; Referring Provider Internal Medicine; Visit Provider Internal Medicine
DX: R31.0 Gross hematuria (principal); N28.89 Other specified disorders of kidney and ureter; N20.0 Calculus of kidney; N40.0 Benign prostatic hyperplasia without lower urinary tract symptoms; K57.90 Diverticulosis of intestine, part unspecified, without perforation or abscess without bleeding
CPT/HCPCS: 74178; Q9967

== ENCOUNTER → 2022-07-05 11:12 | Outpatient (CLI) | payer MEDICARE, SELFPAY ==
[2022-07-12 13:53] LABS: Acetylcholine Receptor Bind AB 0.04 nmol/L (0.00-0.24)
== END ==
PROVIDERS: PCP Internal Medicine; Referring Provider Psychiatry & Neurology Neurology; Visit Provider Psychiatry & Neurology Neurology
DX: R42 Dizziness and giddiness (principal); H53.2 Diplopia
CPT/HCPCS: 36415; 83519; 86255

== ENCOUNTER → 2022-10-24 11:08 | Outpatient (CLI) | payer MEDICARE, SELFPAY ==
[2022-10-24 12:46] LABS: Appearance Urine UA CLEAR; Bilirubin Urine UA NEGATIVE (NEGATIVE); Color Urine UA YELLOW; Glucose Urine UA NEGATIVE (Negative); Ketones Urine UA NEGATIVE (NEGATIVE); Leukocyte Esterase Urine UA NEGATIVE (NEGATIVE); Nitrite Urine UA NEGATIVE (Negative); Occult Blood Urine UA NEGATIVE (Negative); Protein Urine UA NEGATIVE (Negative); Specific Gravity Urine UA <=1.005 (1.000-1.035); Urobilinogen Urine UA 0.2 E.U./dL (0.2)
[2022-10-24 12:59] LABS: Bacteria Urine None Seen; Culture Indicated Urine Cult Not Indicated; RBC Urine None Seen (0-5/HPF); Squamous Epithelial Cell Urine 0-1 /HPF (0-5/HPF); WBC Urine 0-1/HPF (0-5/HPF)
== END ==
PROVIDERS: PCP Internal Medicine; Referring Provider Internal Medicine; Visit Provider Internal Medicine
DX: N39.0 Urinary tract infection, site not specified (principal)
CPT/HCPCS: 81001

== ENCOUNTER → 2022-10-29 13:23 | Outpatient (CLI) | payer MEDICARE, SELFPAY ==
[2022-10-29 14:59] LABS: BUN Creatinine Ratio 14.9 (6-22); Blood Urea Nitrogen 13 mg/dL (9-20); Calcium 9.4 mg/dL (8.4-10.2); Carbon Dioxide 25 mmol/L (22-32); Chloride 100 mmol/L (98-107); Estimated Glomerular Filt Rate > 60 mL/min (>60); Glucose 91 mg/dL (80-110); HEMOLYSIS < 15 (0-50); Potassium 4.8 mmol/L (3.4-5.1); Sodium 136 mmol/L (137-145)
== END ==
PROVIDERS: PCP Internal Medicine; Referring Provider Urology; Visit Provider Urology
DX: N20.0 Calculus of kidney (principal); R31.29 Other microscopic hematuria; R39.9 Unspecified symptoms and signs involving the genitourinary system; N52.9 Male erectile dysfunction, unspecified; Z80.42 Family history of malignant neoplasm of prostate; Z84.1 Family history of disorders of kidney and ureter
CPT/HCPCS: 36415; 80048; 81002; 99214

== ENCOUNTER → 2022-11-04 10:48 | Outpatient (CLI) | payer MEDICARE, SELFPAY ==
--- NOTE | 2022-11-04 10:49 | DI.CT.S_ITS ---
PROCEDURE: CT ABDOMEN PELVIS WO/W CON INDICATIONS: Persistent microscopic hematuria, kidney stones TECHNIQUE: Optional 5 mm thick noncontrast images acquired from the diaphragm to the symphysis pubis. After the administration of intravenous contrast, 5 mm thick images acquired from the diaphragm to the symphysis pubis after a 10-minute delay. 2 mm thick coronal and sagittal reformats were then performed of the kidneys and ureters. For radiation dose reduction, the following was used: automated exposure control, adjustment of mA and/or kV according to patient size. COMPARISON: [facility], CT, CT IVP A/P W/WO, 06/14/2022, 12:26. FINDINGS: Image quality: Excellent. Lung bases: Lung bases are clear. Heart size is normal. Severe coronary artery calcifications. Urinary system: Both kidneys are normal in size, without hydronephrosis or on pre-contrast images. No perinephric fat stranding. Right kidney: Unchanged right upper pole nonobstructing stone measuring 8 mm, with a Hounsfield measurement of 1090 period again noted are 3 separate stones in a single calyx of the right lower pole, nonobstructive, the largest of which measures approximately 7 mm. It has a Hounsfield measurement of 915. The proximal ureteral stone on the previous study has resolved, and there is no hydronephrosis. No renal mass. Left kidney: No renal stone, renal mass, or hydronephrosis. Opacified portions of both ureters demonstrate normal caliber. Bladder wall thickness is normal. No calcified bladder stones. Prostate is enlarged. Other solid organs: Liver is normal in size and enhancement. Gallbladder is unremarkable without calcified stones. . Biliary system is non dilated. Pancreas enhances normally. Spleen is normal in size and enhancement. No adrenal nodules. Peritoneum and bowel: Bowel loops demonstrate normal wall thickness and caliber. No free fluid or air. Extensive sigmoid diverticulosis without evidence of diverticulitis. Nodes and vessels: No retroperitoneal or mesenteric adenopathy by size criteria. Aorta and inferior vena cava are normal in size. Abdominal wall: No ventral hernias. Pelvis: No pathologic free pelvic fluid. No inguinal hernias or adenopathy. Bones: No suspicious bony lesions. No vertebral body compression fractures. Total right hip arthroplasty. Bony ankylosis of the SI joints. Lumbar degenerative change. IMPRESSION: 1. There is no longer a proximal right ureteral stone. There is no hydronephrosis. 2. Nonobstructing right renal stones as described above. 3. No evidence of malignancy. 4. Severe coronary artery atherosclerotic calcifications. 5. Prostate enlargement. 6. Extensive sigmoid diverticulosis without evidence of diverticulitis. Dictated by: Willy Manriquez M.D. on 11/04/2022 at 15:23 Approved by: Willy Manriquez M.D. on 11/04/2022 at 15:31
== END ==
PROVIDERS: PCP Internal Medicine; Referring Provider Urology; Visit Provider Urology
DX: R31.29 Other microscopic hematuria (principal); N20.0 Calculus of kidney; I25.10 Atherosclerotic heart disease of native coronary artery without angina pectoris; N40.0 Benign prostatic hyperplasia without lower urinary tract symptoms; K57.30 Diverticulosis of large intestine without perforation or abscess without bleeding; Z84.1 Family history of disorders of kidney and ureter
CPT/HCPCS: 74178; Q9967

== ENCOUNTER → 2022-11-13 09:15 | Outpatient (CLI) | payer MEDICARE, SELFPAY ==
--- NOTE | 2022-11-13 09:16 | DI.RAD.S_ITS ---
PROCEDURE: XR KUB INDICATIONS: Right renal calculi TECHNIQUE: One view of the abdomen acquired. COMPARISON: [facility], CT, CT ABDOMEN PELVIS WO/W CON, 11/04/2022, 11:06. FINDINGS: Surgical changes and devices: Right hip arthroplasty is present. Bowel: Bowel gas pattern is obstructive. Moderate stool is present. Calcifications remain present overlying the inferior renal pole on the right corresponding to calcifications identified on prior CT. Soft tissues: No suspicious abdominal calcifications. Visualized solid organ contours appear normal in size. Bones: No suspicious bony lesions. IMPRESSION: Persistent appearance of calcifications overlying the right renal pole inferiorly. More mid and superior portions are obscured by overlying stool. Dictated by: Izabella Esquivel M.D. on 11/13/2022 at 15:58 Approved by: Izabella Esquivel M.D. on 11/13/2022 at 15:59
== END ==
PROVIDERS: PCP Internal Medicine; Referring Provider Urology; Visit Provider Urology
DX: N20.0 Calculus of kidney (principal); R31.29 Other microscopic hematuria
CPT/HCPCS: 51798; 52000; 74018; 81002

== ENCOUNTER 2022-11-25 06:52 | Day surgery (SDC) | payer MEDICARE, SELFPAY ==
[2022-11-19 13:43] VITALS: BMI 30.7
[2022-11-25 07:19] VITALS: BP 140/83; PULSE 68; RESP 16; TEMP 36.2; O2SAT 98; BMI 30.7
[2022-11-25] MEDS: LACTATED RINGERS 1,000 ML 21 ML IV (07:33)
--- NOTE | 2022-11-25 07:39 | PM.PREOP ---
Pre-operative Note COVID-19 COVID-19 status: Not tested Criteria for continued procedure: Delay expected to result in less-positive ultimate med/surg outcome and Non-surgical alternatives not available or appropriate per current SOC Interval Note History & Physical reviewed/Exam performed by Physician: Yes Changes to H&P: No
[2022-11-25] MEDS: CEFAZOLIN 2 GM/100 ML PREMIX 100 ML IV (07:48)
--- NOTE | 2022-11-25 08:05 | SUR.OPER ---
Addendum entered by Sudarshan Canas R.N. 11/25/22 08:06: Pt left on his gold colred ring to his left fourth finger. Original Note: Lithotomy on ESWL table, head on pillow, arms padded with gel pads and tucked at sides. Legs secured in padded yellow fins stirrups. For ESWL patient remained on ESWL table in supine position.
[2022-11-25 08:50] VITALS: BP 125/74; PULSE 72; RESP 11; TEMP 37.1; O2SAT 95
--- NOTE | 2022-11-25 08:54 | PM.OP.1 ---
Procedure & Clinicians Procedure: Right extracorporeal shockwave lithotripsy, cystoscopy with right ureteral stent placement Same procedure as scheduled: Yes Indications: This 77-year-old male was found to have to right-sided renal calculi. And presents this time for the above procedure. Surgeon: Ki Mina Click Yes if Unassisted: Yes Anesthesia Type: General Operative Notes Findings: At cystoscopy urethral meatus was normal normal urethra to the sphincter which was well coapted normal mucosa throughout. Prostate shows moderate obstructive character. Ureteral orifices right and left were normal position with clear efflux. In the bladder there was moderate trabeculation mucosa was normal without abnormality. A 7 Kosovan multi length stent was left in good position in the right collecting system without a string. At extracorporeal shockwave lithotripsy the upper stone received a total of 800 shocks at level 7 had appeared to be well fragmented there were 2 stones or a dumbbell-shaped stone lower in the kidney which received the remainder of the shocks for a total of 2000 shocks. This also appeared to be well fragmented. No other abnormalities or significant findings were noted. Closure Type: not applicable Specimen(s): none sent Prosthetic devices, grafts, tissues, transplants, or devices: Seven Kosovan by multi length stent right collecting system no string Estimated Blood Loss (mL): 0 Blood products transfused: none Procedure in detail: Procedure in detail: After informed consent was obtained, the patient was identified and brought to the operating room. He was placed in a supine position on the Lithotripter had anesthesia was induced and maintained. Ensuring an adequate level of anesthesia the patient was transitioned to a lithotomy position where he was prepped, draped, prepared Transurethral procedure. After prepping draping in ensuring an adequate level of anesthesia 22 Kosovan cystoscope was passed through the urethra prostate and into the bladder where cystoscopy was performed. The right ureteral orifice once again identified and a hybrid guidewire was passed up in the collecting system under fluoroscopic visualization. The stent was then passed over the wire in a coaxial fashion position in the renal pelvis under fluoroscopic visualization and in the bladder under direct vision. A grasping forceps was inserted and the stent grasped in the nylon harness removed. The stent was left in good position confirmed by direct vision in the bladder and fluoroscopy in the kidney. The upper stone was then positioned via the imaging system and targeted at F1 hand shockwave delivered at level 7 for a total of 800 shocks. At this point the stone appeared well fragmented in the lithotripsy head was rotated out fluoroscopy confirmed the stone to be well fragmented. Attention was then turned to the dumbbell-shaped or 2 lower stones which were then centered and shockwave delivered for a total of 1200 shocks at level 7. At this point a total of 2000 shocks had been delivered. The shockwave head was rotated out fluoroscopy again confirmed that the stones all appeared to be well fragmented. At this point the patient was awakened having tolerated the procedure well. Please no prior to removing the cystoscope at cystoscopy the patient's bladder was drained. There were no complications and the patient was transferred to the postanesthesia care unit for recovery. Complications: none Post-operative Condition: stable Disposition: PACU Plan for aftercare: Patient should be discharged to home to strain his urine and to save any fragments that he catches and bring those to follow-up. Patient will return to my office in approximately 14 days with a KUB.
[2022-11-25 08:55] VITALS: BP 129/63; PULSE 81; RESP 17; O2SAT 96
[2022-11-25 09:00] VITALS: BP 124/69; PULSE 88; RESP 12; O2SAT 98
[2022-11-25 09:05] VITALS: BP 118/63; PULSE 70; RESP 14; O2SAT 96
[2022-11-25 09:15] VITALS: BP 124/67; PULSE 74; RESP 15; TEMP 37.1; O2SAT 99
== END 2022-11-25 09:28 | disposition home or self-care (01) ==
PROVIDERS: Admitting Provider Anesthesiology; PCP Internal Medicine; Referring Provider Urology; Visit Provider Urology
PROC: (CPT 50590; principal; 2022-11-25 07:45)
PROC: (CPT 50590; 2022-11-25 07:45)
DX: N20.0 Calculus of kidney (principal); Z84.1 Family history of disorders of kidney and ureter
CPT/HCPCS: 50590; 52332; J0690; J2405; J2704; J3010

== ENCOUNTER → 2022-12-09 09:48 | Outpatient (CLI) | payer MEDICARE, SELFPAY ==
--- NOTE | 2022-12-09 09:50 | DI.RAD.S_ITS ---
PROCEDURE: XR KUB INDICATIONS: kidney stones TECHNIQUE: One view of the abdomen acquired. COMPARISON: [facility], CR, XR KUB, 11/13/2022, 9:17. FINDINGS: Surgical changes and devices: Right-sided nephroureteral stent present Bowel: Bowel gas pattern is normal. Soft tissues: A couple of calcifications project over the right kidney, largest grouping of calcifications in the lower pole measures 1.1 centimeters. Bones: No suspicious bony lesions. IMPRESSION: 1. A couple of calcifications project over the right kidney, largest grouping of calcifications in the lower pole measures 1.1 centimeters. 2. Right-sided nephroureteral stent in place. Dictated by: Luis Miguel Rodriges M.D. on 12/09/2022 at 11:48 Approved by: Luis Miguel Rodriges M.D. on 12/09/2022 at 11:49
== END ==
PROVIDERS: PCP Internal Medicine; Referring Provider Urology; Visit Provider Urology
DX: N20.0 Calculus of kidney (principal); Z96.0 Presence of urogenital implants
CPT/HCPCS: 74018

== ENCOUNTER → 2022-12-13 14:04 | Outpatient (CLI) | payer MEDICARE, SELFPAY ==
[2022-12-18 03:36] LABS: Ca oxalate monohydr 100 % (.); Size 3x3 mm (.)
== END ==
PROVIDERS: PCP Internal Medicine; Visit Provider Urology
DX: N20.0 Calculus of kidney (principal)
CPT/HCPCS: 82365

== ENCOUNTER → 2023-01-13 11:35 | Outpatient (CLI) | payer MEDICARE, SELFPAY ==
--- NOTE | 2023-01-13 11:37 | DI.RAD.S_ITS ---
PROCEDURE: XR KUB INDICATIONS: Kidney stones TECHNIQUE: One view of the abdomen acquired. COMPARISON: [facility], CR, XR KUB, 12/09/2022, 9:48. [facility], CR, XR KUB, 11/13/2022, 9:17. FINDINGS: A right ureteral stent is present, similar in appearance to before. A few small calcifications project over the right kidney, largest is at the inferior kidney measuring approximately 7 millimeters. Visualized bowel gas pattern is nonobstructive. IMPRESSION: Right ureteral stent present as before. Small calcifications project over the right kidney, not substantially changed in appearance. Dictated by: José Lua M.D. on 01/13/2023 at 15:10 Approved by: José Lua M.D. on 01/13/2023 at 15:13
== END ==
PROVIDERS: PCP Internal Medicine; Referring Provider Urology; Visit Provider Urology
DX: N20.0 Calculus of kidney (principal); R39.9 Unspecified symptoms and signs involving the genitourinary system; Z96.0 Presence of urogenital implants
CPT/HCPCS: 74018

== ENCOUNTER → 2023-02-24 09:49 | Outpatient (CLI) | payer MEDICARE, SELFPAY ==
--- NOTE | 2023-02-24 09:51 | DI.RAD.S_ITS ---
PROCEDURE: XR KUB INDICATIONS: kidney stones TECHNIQUE: One view of the abdomen acquired. COMPARISON: [facility], CR, XR KUB, 01/13/2023, 11:47. [facility], CR, XR KUB, 12/09/2022, 9:48. FINDINGS: Surgical changes and devices: A right ureteral stent is in similar position. Partially seen right hip arthroplasty. Bowel: Prominent stool burden. Soft tissues: No suspicious calcifications. There may be small calcifications projecting over the right renal fossa, difficult to evaluate due to significant overlapping stool. Bones: Degenerative changes. IMPRESSION: Stable position of the right ureter stent. Possible small calcifications projecting over the right kidney, not well evaluated due to significant overlapping stool. Dictated by: Alireza Thurston M.D. on 02/24/2023 at 13:49 Approved by: Alireza Thurston M.D. on 02/24/2023 at 13:51
== END ==
PROVIDERS: PCP Internal Medicine; Referring Provider Specialist; Visit Provider Specialist
DX: N20.0 Calculus of kidney (principal); Z96.0 Presence of urogenital implants
CPT/HCPCS: 74018

== ENCOUNTER → 2023-02-26 07:56 | Outpatient (CLI) | payer MEDICARE, SELFPAY | PROVIDERS: PCP Internal Medicine; Visit Provider Urology | DX: N20.0 Calculus of kidney (principal); R31.29 Other microscopic hematuria; R39.9 Unspecified symptoms and signs involving the genitourinary system; N52.9 Male erectile dysfunction, unspecified; Z80.42 Family history of malignant neoplasm of prostate; Z84.1 Family history of disorders of kidney and ureter; Z96.0 Presence of urogenital implants | CPT/HCPCS: 81002; 87077; 87086; 87147; 87186; 99213 ==

== ENCOUNTER → 2023-03-19 08:30 | Outpatient (CLI) | payer MEDICARE, SELFPAY | PROVIDERS: PCP Internal Medicine; Visit Provider Urology | DX: N20.0 Calculus of kidney (principal); R31.29 Other microscopic hematuria; R39.9 Unspecified symptoms and signs involving the genitourinary system | CPT/HCPCS: 52310; 81002; 87086 ==

== ENCOUNTER → 2023-03-27 08:36 | Outpatient (CLI) | payer MEDICARE, SELFPAY ==
[2023-03-27 10:39] LABS: Uric Acid 4.4 mg/dL (3.5-8.5)
[2023-03-29 08:39] LABS: Parathyroid Hormone, Intact 55 pg/mL (15-65)
== END ==
PROVIDERS: PCP Internal Medicine; Referring Provider Urology; Visit Provider Urology
DX: N20.0 Calculus of kidney (principal); R31.29 Other microscopic hematuria; R39.9 Unspecified symptoms and signs involving the genitourinary system; N52.9 Male erectile dysfunction, unspecified; Z84.1 Family history of disorders of kidney and ureter; Z80.42 Family history of malignant neoplasm of prostate
CPT/HCPCS: 36415; 81002; 82310; 83970; 84100; 84550; 99213

== ENCOUNTER → 2023-04-30 14:15 | Outpatient (CLI) | payer MEDICARE, SELFPAY ==
[2023-05-01 09:09] LABS: PSA Free % 22.7 % (.); PSA, Total 1.1 ng/mL (0.0-4.0)
== END ==
PROVIDERS: PCP Internal Medicine; Referring Provider Urology; Visit Provider Urology
DX: Z12.5 Encounter for screening for malignant neoplasm of prostate (principal); Z80.42 Family history of malignant neoplasm of prostate
CPT/HCPCS: 36415; 84153; 84154; G0103

== ENCOUNTER → 2023-05-12 09:38 | Outpatient (CLI) | payer MEDICARE, SELFPAY ==
[2023-05-12 11:00] LABS: Appearance Urine UA CLEAR; Bilirubin Urine UA NEGATIVE (NEGATIVE); Color Urine UA YELLOW; Glucose Urine UA NEGATIVE (Negative); Ketones Urine UA NEGATIVE (NEGATIVE); Leukocyte Esterase Urine UA NEGATIVE (NEGATIVE); Nitrite Urine UA NEGATIVE (Negative); Occult Blood Urine UA NEGATIVE (Negative); Protein Urine UA NEGATIVE (Negative); pH Urine UA 6.5 (4.5-8.0)
[2023-05-12 11:20] LABS: Bacteria Urine None Seen; Culture Indicated Urine Cult Not Indicated; RBC Urine None Seen (0-5/HPF); Squamous Epithelial Cell Urine None Seen (0-5/HPF); WBC Urine None Seen (0-5/HPF)
[2023-05-12 11:20] LABS: BUN Creatinine Ratio 18.3 (6-22); Blood Urea Nitrogen 13 mg/dL (9-20); Calcium 9.4 mg/dL (8.4-10.2); Carbon Dioxide 28 mmol/L (22-32); Chloride 102 mmol/L (98-107); Estimated Glomerular Filt Rate > 60 mL/min (>60); Glucose 125 mg/dL (80-110); HEMOLYSIS < 15 (0-50); Potassium 4.2 mmol/L (3.4-5.1); Sodium 138 mmol/L (137-145)
== END ==
PROVIDERS: PCP Internal Medicine; Referring Provider Internal Medicine; Visit Provider Internal Medicine
DX: N20.0 Calculus of kidney (principal); R10.31 Right lower quadrant pain; R31.29 Other microscopic hematuria
CPT/HCPCS: 36415; 80048; 81001

== ENCOUNTER → 2023-05-13 12:18 | Outpatient (CLI) | payer MEDICARE, SELFPAY ==
--- NOTE | 2023-05-13 12:46 | DI.CT.S_ITS ---
PROCEDURE: CT ABDOMEN PELVIS WO/W CON INDICATIONS: right groin pain TECHNIQUE: Optional 5 mm thick noncontrast images acquired from the diaphragm to the symphysis pubis. After the administration of intravenous contrast, 5 mm thick images acquired from the diaphragm to the symphysis pubis after a 10-minute delay. 2 mm thick coronal and sagittal reformats were then performed of the kidneys and ureters. For radiation dose reduction, the following was used: automated exposure control, adjustment of mA and/or kV according to patient size. COMPARISON: [facility], CT, CT ABDOMEN PELVIS WO/W CON, 11/04/2022, 11:06. FINDINGS: Image quality: Excellent. Lung bases: Lung bases are clear. Heart size is normal. Urinary system: Both kidneys are normal in size. Nonobstructing right inferior pole 6 mm calculus (HU 414) and right superior pole 3 mm calculus. Nonobstructing left interpolar 4 mm calculus. No hydronephrosis bilaterally. No perinephric fat stranding. There is normal bilateral renal enhancement. Subcentimeter left cortical hypodensity, too small to characterize, probable cyst. Renal calyces appear normal in morphology when filled with contrast. Opacified portions of both ureters demonstrate normal caliber. Bladder wall thickness is normal. No calcified bladder stones. Other solid organs: Liver is normal in size and enhancement. Gallbladder unremarkable . Biliary system is non dilated. Pancreas enhances normally. Spleen is normal in size and enhancement. No adrenal nodules. Peritoneum and bowel: Bowel loops demonstrate normal wall thickness and caliber. Colonic diverticulosis without evidence of diverticulitis. No free fluid or air. Nodes and vessels: No retroperitoneal or mesenteric adenopathy by size criteria. Aorta and inferior vena cava are normal in size. Aorto bi iliac atherosclerotic calcifications. Abdominal wall: No ventral hernias. Pelvis: Enlarged prostate. No pathologic free pelvic fluid. No inguinal hernias or adenopathy. Bones: No acute or suspicious osseous lesion. Status post right hip arthroplasty. Moderate degenerative changes of the lumbar spine. IMPRESSION: 1. Nonobstructing bilateral renal calculi , 2 on the right measuring up to 6 mm and 1 on the left measuring 4 mm. No hydronephrosis. 2. No evidence of malignancy. 3. Colonic diverticulosis without evidence of diverticulitis. Dictated by: Sasha Fraser M.D. on 05/13/2023 at 16:37 Approved by: Sasha Fraser M.D. on 05/13/2023 at 16:46
== END ==
PROVIDERS: PCP Internal Medicine; Referring Provider Internal Medicine; Visit Provider Internal Medicine
DX: R31.29 Other microscopic hematuria (principal); N20.0 Calculus of kidney; R10.31 Right lower quadrant pain; K57.90 Diverticulosis of intestine, part unspecified, without perforation or abscess without bleeding
CPT/HCPCS: 74178

== ENCOUNTER → 2023-09-17 10:42 | Outpatient (CLI) | payer MEDICARE, SELFPAY ==
[2023-09-17 12:11] LABS: Aspartate Aminotransferase 25 IU/L (17-59); Blood Urea Nitrogen 18 mg/dL (9-20); Calcium 9.2 mg/dL (8.4-10.2); Carbon Dioxide 27 mmol/L (22-32); Chloride 101 mmol/L (98-107); Cholesterol 164 mg/dL (140-199); Estimated Glomerular Filt Rate > 60 mL/min (>60); Glucose 102 mg/dL (80-110); HDL Cholesterol 54 mg/dL (40-60); HEMOLYSIS 49 (0-50); LDL Cholesterol Calculated 84 mg/dL (<100); Sodium 138 mmol/L (137-145); Triglycerides 132 mg/dL (35-150)
== END ==
PROVIDERS: PCP Internal Medicine; Referring Provider Internal Medicine; Visit Provider Internal Medicine
DX: I50.22 Chronic systolic (congestive) heart failure (principal); E78.2 Mixed hyperlipidemia; N40.1 Benign prostatic hyperplasia with lower urinary tract symptoms; N13.8 Other obstructive and reflux uropathy
CPT/HCPCS: 36415; 80048; 80061; 84450

== ENCOUNTER → 2023-11-18 11:45 | Outpatient (CLI) | payer MEDICARE, SELFPAY ==
--- NOTE | 2023-11-18 11:48 | DI.RAD.S_ITS ---
PROCEDURE: XR KUB INDICATIONS: Calcium oxalate stones TECHNIQUE: One view of the abdomen acquired. COMPARISON: [facility], CR, XR KUB, 02/24/2023, 11:21. FINDINGS: Surgical changes and devices: There is prior right total hip arthroplasty. Bowel: Significant fecal stasis throughout the colon is seen. No gross peritoneal free air. Soft tissues: Suggestion of small calcifications projecting in the region of lower pole right kidney measures 3-4 mm in size . No gross left-sided renal calcifications. Visualized solid organ contours appear normal in size. Bones: No suspicious bony lesions. IMPRESSION: Finding is concerning for right-sided small renal calculi. Moderate constipation. No gross free air. Dictated by: Gregorio Muir M.D. on 11/18/2023 at 14:20 Approved by: Gregorio Muir M.D. on 11/18/2023 at 14:21
[2023-11-18 13:33] LABS: Prostate Specific Antigen 1.28 ng/mL (0.10-4.00)
== END ==
PROVIDERS: PCP Internal Medicine; Referring Provider Urology; Visit Provider Urology
DX: N20.0 Calculus of kidney (principal); K59.00 Constipation, unspecified; Z80.42 Family history of malignant neoplasm of prostate
CPT/HCPCS: 36415; 74018; 84153

== ENCOUNTER → 2024-03-17 10:13 | Outpatient (CLI) | payer MEDICARE, SELFPAY ==
[2024-03-17 15:28] LABS: Appearance Urine UA CLEAR; Bilirubin Urine UA NEGATIVE (NEGATIVE); Color Urine UA YELLOW; Glucose Urine UA NEGATIVE (Negative); Ketones Urine UA NEGATIVE (NEGATIVE); Leukocyte Esterase Urine UA NEGATIVE (NEGATIVE); Nitrite Urine UA NEGATIVE (Negative); Occult Blood Urine UA NEGATIVE (Negative); Protein Urine UA NEGATIVE (Negative); Urobilinogen Urine UA 0.2 E.U./dL (0.2); pH Urine UA 5.5 (4.5-8.0)
[2024-03-17 15:40] LABS: Bacteria Urine None Seen; Culture Indicated Urine Cult Not Indicated; RBC Urine None Seen (0-5/HPF); Squamous Epithelial Cell Urine None Seen (0-5/HPF); Urine Volume 10mL (spun); WBC Urine None Seen (0-5/HPF)
== END ==
PROVIDERS: PCP Internal Medicine; Visit Provider Physician Assistant
DX: R30.0 Dysuria (principal); R50.9 Fever, unspecified
CPT/HCPCS: 81001

== ENCOUNTER → 2024-03-17 10:22 | Outpatient (CLI) | payer MEDICARE, SELFPAY ==
--- NOTE | 2024-03-17 10:23 | DI.CT.S_ITS ---
PROCEDURE: CT HEAD/BRAIN WO CON INDICATIONS: Suspected stroke; slurred speech; dizziness TECHNIQUE: Noncontrast 4.5 mm thick angled axial sections acquired from the foramen magnum to the vertex, with coronal and sagittal reformats. For radiation dose reduction, the following was used: automated exposure control, adjustment of mA and/or kV according to patient size. COMPARISON: None. FINDINGS: Image quality: Diagnostic. CSF spaces: Basal cisterns are patent. No extra-axial fluid collections. The ventricles are symmetric in size and shape. Brain: No intracranial bleeds or masses. There is cerebral volume loss for age, with resultant ventricular and sulcal prominence. There are periventricular and deep white matter chronic small vessel ischemic changes. There is intracranial internal carotid artery atherosclerosis. Skull and face: Calvarium and visualized facial bones appear intact, without suspicious lesions. Sinuses: Subtotal opacification of the left maxillary sinus. IMPRESSION: 1. No acute intracranial process. 2. Left maxillary sinusitis. Dictated by: Willy Manriquez M.D. on 03/17/2024 at 11:54 Approved by: Willy Manriquez M.D. on 03/17/2024 at 11:56
== END ==
PROVIDERS: PCP Internal Medicine; Referring Provider Physician Assistant; Visit Provider Physician Assistant
DX: I63.9 Cerebral infarction, unspecified (principal); R47.81 Slurred speech; I65.29 Occlusion and stenosis of unspecified carotid artery; J32.0 Chronic maxillary sinusitis; R30.0 Dysuria; R50.9 Fever, unspecified
CPT/HCPCS: 70450; 81001

== ENCOUNTER → 2024-03-19 08:13 | Outpatient (CLI) | payer MEDICARE, SELFPAY ==
--- NOTE | 2024-03-19 08:14 | DI.MRI.S_ITS ---
PROCEDURE: MR STROKE Pre- and post-contrast brain MRI, non-contrast brain MR angiogram, pre- and postcontrast neck MR angiogram INDICATIONS: Suspected stroke; slurred speech; dizziness TECHNIQUE: Brain: Noncontrast axial T1 spin echo, axial T2 fast spin echo, sagittal and axial FLAIR, coronal T2 fast spin echo, axial gradient echo, axial diffusion and ADC through the brain. After the administration of contrast, axial 3D VIBE of the cranial vasculature and brain. Brain MRA: Non-contrast 3-D time of flight MR angiogram, with multiple xodgwak-majhrxpwk-yrnmlfecbh (MIP) reformats performed. Neck MRA: Axial and sagittal TruFISP through the neck. Coronal dynamic MR angiogram during administration of contrast in the arterial and venous phases, with 3-dimenstional njzteej-dbdjmeqwj-rlkofbvbgv (MIP) reformats constructed from subtraction images. COMPARISON: Of the [facility], CT, CT HEAD/BRAIN WO CON, 03/17/2024, 10:49. FINDINGS: Image quality: Excellent. BRAIN: CSF spaces: Ventricles are normal in size and shape. Basal cisterns are patent. No extra-axial fluid collections. Brain: No intracranial bleeds or mass effects. Pack-white matter interface is normal. Diffusion weighted images show no acute infarct. Brainstem appears normal. Very minimal age-appropriate small-vessel ischemic change. Normal intravascular flow voids are present. No abnormal intracranial enhancement. Skull and face: Calvarial marrow signal is normal. Orbits appear normal. Sinuses: Complete opacification of the left maxillary sinus. BRAIN MR ANGIOGRAM: Anterior circulation: Intracranial internal carotid arteries are normal in size and enhancement. The flow within the paired anterior cerebral arteries is normal and symmetric. The flow within the middle cerebral arteries is normal and symmetric. The anterior communicating artery is seen. No stenoses, occlusions, or aneurysms. Posterior circulation: The visualized portions of the vertebral arteries demonstrate normal caliber, and join to form a normal appearing basilar artery. The flow within the posterior cerebral arteries is normal and symmetric. No stenoses, occlusions, or aneurysms. NECK MR ANGIOGRAM: Carotids: Great vessels demonstrate a conventional anatomy as they arise from the aortic arch. The origins of the common carotid arteries appear patent. The calibers and courses of both common carotid arteries are normal. The bifurcation regions appear normal bilaterally. The internal carotid arteries demonstrate minimal non flow limiting proximal right internal carotid artery stenotic disease. Left internal carotid artery is widely patent. Posterior circulation: The origins of the vertebral arteries appear patent. More superior portions of both vertebral arteries demonstrate normal course and caliber, and join to form a normal appearing basilar artery. Miscellaneous: Subclavian arteries appear patent. Pre-contrast images through the neck show no soft tissue abnormalities. IMPRESSION: BRAIN MRI: 1. Complete opacification of the left maxillary sinus. 2. Otherwise unremarkable brain MRI. BRAIN MR ANGIOGRAM: Unremarkable NECK MR ANGIOGRAM: Minimal non flow limiting proximal right internal carotid artery stenotic disease. Otherwise unremarkable. Dictated by: Willy Manriquez M.D. on 03/19/2024 at 10:32 Approved by: Willy Manriquez M.D. on 03/19/2024 at 10:40
== END ==
LOC: MRI 08:14
PROVIDERS: PCP Internal Medicine; Referring Provider Physician Assistant; Visit Provider Physician Assistant
DX: I63.9 Cerebral infarction, unspecified (principal); R47.81 Slurred speech; R42 Dizziness and giddiness; I25.10 Atherosclerotic heart disease of native coronary artery without angina pectoris
CPT/HCPCS: 70544; 70549; 70553; A9579

== ENCOUNTER → 2024-09-18 10:01 | Outpatient (CLI) | payer MEDICARE, SELFPAY | PROVIDERS: PCP Internal Medicine; Visit Provider Nurse Practitioner Family | DX: R30.0 Dysuria (principal) | CPT/HCPCS: 87077; 87086; 87186 ==

== ENCOUNTER → 2024-09-28 09:37 | Outpatient (CLI) | payer MEDICARE, SELFPAY ==
[2024-09-28 10:05] LABS: Hemoglobin 14.7 g/dL (13.5-17.5); Mean Corpuscular HGB Conc 32.7 % (30-36); Mean Corpuscular Hemoglobin 30.7 PG (26-34); Mean Corpuscular Volume 93.9 fL (80-100); Platelet Count 330 X10^3/uL (150-400); Red Blood Cell Count 4.79 X10^6/uL (4.5-5.9); White Blood Cell Count 8.3 X10^3/uL (4.5-11.0)
[2024-09-28 10:43] LABS: Alanine Aminotransferase 41 IU/L (<50); Albumin 4.5 g/dL (3.5-5.0); Albumin Globulin Ratio 1.7 (1.0-2.8); Alkaline Phosphatase 66 U/L (38-126); Aspartate Aminotransferase 34 IU/L (17-59); BUN Creatinine Ratio 20.2 (6-22); Bilirubin Total 0.5 mg/dL (0.2-1.3); Blood Urea Nitrogen 17 mg/dL (9-20); Calcium 9.6 mg/dL (8.4-10.2); Carbon Dioxide 27 mmol/L (22-32); Chloride 107 mmol/L (98-107); Cholesterol 172 mg/dL (140-199); Estimated Glomerular Filt Rate > 60 mL/min (>60); Globulin 2.6 g/dL (1.7-4.1); Glucose 128 mg/dL (80-110); HDL Cholesterol 53 mg/dL (40-60); HEMOLYSIS < 15 (0-50); LDL Cholesterol Calculated 96 mg/dL (<100); Sodium 143 mmol/L (137-145); Total Protein 7.1 g/dL (6.3-8.2); Triglycerides 116 mg/dL (35-150)
[2024-09-28 11:02] LABS: Potassium 5.8 mmol/L (3.4-5.1)
[2024-09-28 11:13] LABS: Prostate Specific Antigen 4.19 ng/mL (0.10-4.00)
[2024-09-28 11:16] LABS: TSH w/ Reflex to FT4 2.46 uIU/mL (0.47-4.68)
== END ==
PROVIDERS: PCP Internal Medicine; Referring Provider Internal Medicine; Visit Provider Internal Medicine
DX: E78.2 Mixed hyperlipidemia (principal); N40.1 Benign prostatic hyperplasia with lower urinary tract symptoms; I50.22 Chronic systolic (congestive) heart failure; N13.8 Other obstructive and reflux uropathy
CPT/HCPCS: 36415; 80053; 80061; 84153; 84443; 85027

== ENCOUNTER → 2025-02-21 14:58 | Outpatient (CLI) | payer MEDICARE, SELFPAY ==
[2025-02-21 15:35] LABS: HEMOLYSIS 30 (0-50); Potassium 4.7 mmol/L (3.4-5.1)
[2025-02-21 16:10] LABS: Prostate Specific Antigen 1.32 ng/mL (0.10-4.00)
== END ==
PROVIDERS: PCP Internal Medicine; Referring Provider Internal Medicine; Visit Provider Internal Medicine
DX: R97.20 Elevated prostate specific antigen [PSA] (principal); I10 Essential (primary) hypertension
CPT/HCPCS: 36415; 84132; 84153